=== PATIENT | female | born 1995 | race Two or more races ===

== ENCOUNTER 2023-03-22 19:22 | Inpatient (IN) | payer OTHER ==
[~2023-03-22] VITALS: Ht 170.2 cm; Wt 3.2 kg
[2023-03-22 20:48] LABS: HEMATOCRIT 35.4 % (36.0-45.00); MEAN CELL VOLUME 85.9 fL (80.00-100.00); MEAN CORPUSCULAR HEMOGLOBIN 29.2 pg (27.00-32.0); PH,URINE 6.5 (5.0-8.0); PLATELET COUNT 213 K/uL (150-450); RED BLOOD COUNT 4.12 M/uL (4.00-6.00); RED CELL DISTRIBUTION WIDTH 14.5 % (11.5-14.5); URINE APPEARANCE Cloudy; URINE BILIRRUBIN Negative (NEGATIVE); URINE BLOOD Negative; URINE COLOR Dark Yellow; URINE GLUCOSE Negative (NEGATIVE); URINE LEUKOCYTE Moderate; URINE NITRATE Negative; URINE PROTEIN 30 (NEGATIVE)
[2023-03-22 20:52] LABS: URINE RBC 7.3 uL (0.0-20.8); URINE WBC 340.2 uL (0.0-23.2)
[2023-03-22 21:03] LABS: INR 0.98; PARTIAL THROMBOPLASTIN TIME 24.5 SECONDS (22.0-34.0); PROTHROMBIN TIME 10.3 SECONDS (9.0-11.5)
[2023-03-22 21:08] LABS: URINE BACTERIA > 9821.5 uL (0.0-1933); URINE CRYSTALS MANY /HPF; URINE EPITHELIAL CELLS > 201.7 uL (0.0-38.8)
[2023-03-22] MEDS ORDERED: PRENATAL + DHA1 EAC1 PO (23:08)
[2023-03-24 06:14] LABS: HEMATOCRIT 36.1 % (36.0-45.00); HEMOGLOBIN 11.9 g/dL (12.0-15.00); MEAN CELL VOLUME 86.2 fL (80.00-100.00); MEAN CORPUSCULAR HEMOGLOBIN 28.4 pg (27.00-32.0); PLATELET COUNT 215 K/uL (150-450); RED BLOOD COUNT 4.19 M/uL (4.00-6.00)
== END 2023-03-26 17:07 | disposition home or self-care (01) | DRG 788 ==
LOC: OB/GYN 19:22 → LDR 19:22 → OB/GYN 03-24 00:16
PROVIDERS: ADMIT Obstetrics & Gynecology; ATTEND Obstetrics & Gynecology
PROC: 4A1HXCZ Monitoring of Products of Conception, Cardiac Rate, External Approach (ICD-10-PCS; 2023-03-22)
PROC: 10D00Z1 Extraction of Products of Conception, Low, Open Approach (ICD-10-PCS; principal; 2023-03-24)
DX: O62.0 Primary inadequate contractions (principal); Z3A.39 39 weeks gestation of pregnancy; Z37.0 Single live birth; Z20.822 Contact with and (suspected) exposure to COVID-19